=== PATIENT | male | born 1960 | race Caucasian/White ===

== ENCOUNTER 2019-08-31 10:31 | Outpatient (CLI) | payer MEDICARE, MEDICAID, SELFPAY ==
--- NOTE | 2019-08-31 10:40 | XR_ITS ---
WS: [id number] KNEE LEFT TECHNIQUE: 3 views of the left knee CLINICAL INFORMATION: knee injection COMPARISON: None. FINDINGS: Mild degenerative narrowing medial joint compartment. Hypertrophic patella. Moderate degenerative yariel rowing at the patellofemoral articulation. No acute fractures. XR/XR knee LT 3V* [id number] IMPRESSION: Mild degenerative narrowing medial joint compartment and moderate narrowing at the patellofemoral articulation
--- NOTE | 2019-08-31 10:40 | XR_ITS ---
WS: [id number] KNEE RIGHT TECHNIQUE: 3 views of the right knee CLINICAL INFORMATION: knee pain COMPARISON: None. FINDINGS: Normal anatomic alignment. Mild narrowing of the medial joint compartment. Moderate narrowing at the patellofemoral articulation. No acute fractures. 11 mm focus of calcification in the popliteal fossa. XR/XR knee RT 3V* [id number] IMPRESSION: Mild degenerative arthritis medial joint compartment and moderate at the patell ofemoral articulation.
== END 2019-08-31 10:32 | disposition home or self-care (01) ==
LOC: RADWPI 10:39
PROVIDERS: Family Provider Family Medicine; PCP Family Medicine; Visit Provider Family Medicine
DX: M25.562 Pain in left knee (principal); M17.11 Unilateral primary osteoarthritis, right knee
CPT/HCPCS: 73562

== ENCOUNTER 2021-05-22 16:57 | Emergency (ER) | payer MEDICAID, SELFPAY ==
[2021-05-22 17:27] VITALS: BP 154/87; PULSE 103; RESP 97; TEMP 36.6; O2SAT 96; BMI 25.8
--- NOTE | 2021-05-22 18:27 | XRR_ITS ---
PROCEDURE INFORMATION: Exam: XR Right Forearm Exam date and time: 05/22/2021 6:27 PM Age: 61 years old Clinical indication: Pain; Lower or forearm; Patient HX: Wood injury, tree hit head/right shoulder and neck area/right arm. No SX, no cx, non smoker; Additional info: R/O fb, injury TECHNIQUE: Imaging protocol: XR Right forearm. Views: 2 views. COMPARISON: No relevant prior studies available. FINDINGS: Bones/joints: Normal. Soft tissues: Normal. XR/XR forearm RT 2V [id number] IMPRESSION: No acute findings. Radiation Dose CTDIVOL = (mGy): DLP = (mGy-cm)
[2021-05-22 21:24] VITALS: BP 154/86; PULSE 89; RESP 18; O2SAT 98
--- NOTE | 2021-05-22 21:39 | ED_ITS ---
HPI - Extremity Problem General: Chief complaint: Extremity Injury, Upper Stated complaint: Neck and Shoulder Pain Time Seen by Provider: 05/22/21 18:14 History of Present Illness: HPI Narrative: Patient comes in today states he was working outside cutting limbs and 1 came down and he had a in the right lower part of his neck. Patient appears well. Patient is moving neck and shoulder without any difficulty. Patient is alert and oriented. Review of Systems General: Reports: 10 or more systems reviewed and unremarkable except in HPI and below Musc: Reports: other (Right neck shoulder area pain) [facility] ED PFSH: Medical History (Updated 05/22/21 @ 21:43 by LARRY Lindsay) Alcohol abuse Depression Hypertension Social History Smoking and tobacco status: never smoked Alcohol intake: former History of recent travel: No Physical Exam Const: COMMON NORMALS: no acute distress and patient oriented x3 GENERAL APPEARANCE: cooperative HENMT: COMMON NORMALS: normocephalic and Normal external nose present HEAD & SCALP: normal to inspection and normocephalic NOSE: Normal external nose present MOUTH: Normal oral and palatal mucosa present Eye: GENERAL EYE: appearance normal, both eyes and all related structures Neck/C-Spine: COMMON NORMALS: full ROM OTHER: No sign of abrasion or ecchymosis to the neck. Good range of motion is noted to the neck. Chest: COMMONS NORMALS: normal inspection of the chest Resp: COMMON NORMALS: normal respiratory effort EFFORT & INSPECTION: Yes able to speak in complete sentences Cardio: COMMON NORMALS: regular rate and regular rhythm RATE: regular rate RHYTHM: regular rhythm GI: COMMON NORMALS: non-tender Back/Pelvis: COMMON NORMALS: thoracic and lumbar spine normal to inspection Extremity: COMMON NORMALS: normal to inspection Neuro: COMMON NORMALS: patient oriented x3 and moves all extremities Psych: COMMON NORMALS: mental status grossly normal and cooperative Skin: COMMON NORMALS: no rashes or lesions noted GENERAL SKIN EXAM: no rashes or lesions noted Course Vital Signs: Vital signs: Vital Signs Temperature 97.8 F 05/22/21 17:27 Pulse Rate 89 05/22/21 21:24 Respiratory Rate 18 05/22/21 21:24 Blood Pressure 154/86 05/22/21 21:24 Pulse Oximetry 98 05/22/21 21:24 MDM - Extremity (Nontraumatic) MDM Narrative: Medical decision making narrative: Patient came in for injury to the neck. Patient reports a branch fell from a tree striking him on the neck. Patient appears well, normal range of motion of the neck and shoulders no jossie. Skin is warm and dry. Skin is intact without any signs of ecchymosis or abrasion. Differential diagnosis includes contusion, intervertebral disc disease, facet arthropathy. X-ray was negative for any acute injury. Reviewed exam with patient with recommendations for treatment and follow-up. Patient reported understanding. Discharge Plan Discharge Patient Disposition: Home Clinical Impression: Contusion of neck Qualifiers: Encounter type: initial encounter Qualified Code(s): S10.93XA - Contusion of unspecified part of neck, initial encounter Condition: Stable Prescriptions: Continued naproxen 500 mg tablet 500 mg PO BID PRN (Reason: pain) 30 Days Qty: 30 RF: 0 No Action lisinopril 20 mg tablet 20 mg PO DAILY 90 Days Qty: 90 RF: 0 prednisone 20 mg tablet 20 mg PO BID 5 Days Qty: 10 RF: 0 hydrocortisone [Anti-Itch (HC)] 1 % cream 1 applic TOPICAL TID PRN (Reason: skin irritation) 30 Days Qty: 28.35 RF: 0 amlodipine [Norvasc] 10 mg tablet 10 mg PO QDAY 90 Days Qty: 90 RF: 1 sildenafil 25 mg tablet 25 mg PO DAILY PRN (Reason: sexual activity) Qty: 30 RF: 0 fluoxetine 20 mg capsule 20 mg PO QDAY 90 Days Qty: 90 RF: 1 albuterol sulfate 90 mcg/actuation HFA aerosol inhaler 1 inh INHALATION QID PRN (Reason: shortness of breath or wheezing) Qty: 18 RF: 0 tolnaftate [Lamisil AF] 1 % aerosol powder 1 spray TOPICAL BID 7 Days Qty: 133 RF: 0 Diclo Gel 1 % kit 2 gm TOPICAL BID PRN (Reason: shoulder pain) Qty: 1 RF: 0 Discharge Orders: Discharge ED (Routine); Ordered 05/22/21 Ordered By: Chacorta Thompson Referrals: Moody Macedo MD [Primary Care Provider] - Mya Mauricio DO [Family Provider] - Discharge Diet: Usual diet Discharge Activity: Increase activity as tolerated Patient Instructions: Neck Pain (ED), Opioid Safety Activity Restrictions/Additional Instructions: Activity as tolerated. Continue with naproxen 500 mg twice a day for pain and inflammation. Use ice or heat to the area for further comfort. Follow-up with primary care for further instruction. Return to the ER for new concerns. Coding Level of Care Code ED Tromper for [place] Fwd Exam Comprehensive
--- NOTE | 2021-05-22 21:42 | XRR_ITS ---
PROCEDURE INFORMATION: Exam: XR Cervical Spine Exam date and time: 05/22/2021 9:42 PM Age: 61 years old Clinical indication: Neck pain; Additional info: Injury TECHNIQUE: Imaging protocol: XR of the cervical spine. Views: 2 or 3 views. COMPARISON: CR Ribs LEFT w PA Chest [id number] 03/20/2016 5:17 PM FINDINGS: Bones/joints: Moderate multilevel facet spondylosis on the left in the upper cervical spine. Spinal alignment is normal. Vertebral body height is maintained. No acute fracture. There is moderate degenerative disc disease in the cervical spine. The cervical spine is well visualized on the lateral view through C7-T1. Soft tissues: Visible soft tissues are unremarkable. XR/XR cervical spine 3V* [id number] IMPRESSION: No acute findings. Radiation Dose CTDIVOL = (mGy): DLP = (mGy-cm)
[2021-05-22] MEDS: naproxen 500 mg Tablet PO (22:30)
[2021-05-22 22:40] VITALS: BP 173/107; PULSE 110; RESP 18; O2SAT 96
== END 2021-05-22 22:34 | disposition home or self-care (01) ==
PROVIDERS: Emergency Provider Nurse Practitioner Family; Family Provider Family Medicine; PCP Family Medicine
DX: S10.93XA Contusion of unspecified part of neck, initial encounter (principal); W20.8XXA Other cause of strike by thrown, projected or falling object, initial encounter
CPT/HCPCS: 72040; 73090; 99283